=== PATIENT | male | born 1975 | race African-American/Black ===

== ENCOUNTER 2018-08-28 18:25 | Emergency (ER) | payer BC ==
[~2018-08-28] VITALS: Ht 177.8 cm; Wt 86.6 kg
[~2018-08-28 18:25] MED LIST: PREDNISONE 20 M20 MG PO; PROVENTIL HFA6.7 G1 INH; TESSALON PERLE100 MG PO; WELLBUTRIN 100100 MG PO
[2018-08-28 19:27] LABS: CALCIUM 9.1 mg/dL (8.5-10.1); CREATININE 1.3 mg/dL (0.7-1.3); POTASSIUM 3.9 mmol/L (3.5-5.1)
[2018-08-28 19:29] LABS: URINE BILIRUBIN NEGATIVE (Negative); URINE BLOOD TRACE (Negative); URINE CLARITY CLEAR; URINE COLOR YELLOW; URINE GLUCOSE-RANDOM* NEGATIVE (Negative); URINE KETONES NEGATIVE (Negative); URINE LEUKOCYTES-REFLEX NEGATIVE (Negative); URINE NITRITE-REFLEX NEGATIVE (Negative); URINE PROTEIN (DIPSTICK) NEGATIVE (Negative); URINE SPECIFIC GRAVITY 1.025 (1.005-1.035); URINE UROBILINOGEN 0.2 E.U./dl (0.2-1.0)
[2018-08-28 19:34] LABS: ALBUMIN 3.9 g/dL (3.4-5.0); TOTAL BILIRUBIN 0.2 mg/dL (<0.1-1.0); TOTAL PROTEIN 7.2 g/dL (6.4-8.2)
[2018-08-28 21:26] VITALS: BP 138/58
== END 2018-08-28 21:50 | disposition home or self-care (01) ==
LOC: ER 18:25
PROVIDERS: Emergency Medicine
DX: R10.31 Right lower quadrant pain (principal); R10.32 Left lower quadrant pain; R11.2 Nausea with vomiting, unspecified; F17.210 Nicotine dependence, cigarettes, uncomplicated; Z91.012 Allergy to eggs

== ENCOUNTER 2018-11-17 13:01 | Emergency (ER) | payer BC ==
[~2018-11-17] VITALS: Ht 177.8 cm; Wt 90.7 kg
[2018-11-17 13:41] LABS: URINE BILIRUBIN NEGATIVE (Negative); URINE BLOOD 1+ (Negative); URINE CLARITY CLEAR; URINE COLOR YELLOW; URINE GLUCOSE-RANDOM* NEGATIVE (Negative); URINE KETONES NEGATIVE (Negative); URINE LEUKOCYTES-REFLEX NEGATIVE (Negative); URINE NITRITE-REFLEX NEGATIVE (Negative); URINE PROTEIN (DIPSTICK) NEGATIVE (Negative); URINE UROBILINOGEN 0.2 E.U./dl (0.2-1.0)
[2018-11-17 13:53] LABS: ABSOLUTE NEUTROPHILS 9.8 thou/uL (1.4-8.2); BASOPHILS 0.6 % (0.0-2.0); EOSINOPHILS 0.1 % (0.0-3.0); HEMATOCRIT 50.1 % (42.0-52.0); HEMOGLOBIN 16.5 gm/dL (14.0-18.0); LYMPHOCYTES 12.4 % (24.0-44.0); MCH 29.1 pg (26.0-34.0); MONOCYTES 7.2 % (1.0-8.0); PLATELET COUNT 246 thou/uL (150-400); POLYS 79.7 % (36.0-66.0); RDW 14.6 % (10.5-14.5); WBC 12.2 thou/uL (4.0-11.0)
[2018-11-17 13:53] LABS: BACTERIA-REFLEX 1-9 Few /HPF (None Seen); CASTS None Seen /LPF (None Seen); CRYSTALS None Seen /LPF (None Seen); SQUAMOUS 0-3 Few /LPF (0-3); URINE RBC 0-2 Rare /HPF (0-2); URINE WBC-REFLEX None Seen /HPF (0-5)
[2018-11-17 13:58] LABS: CALCIUM 9.7 mg/dL (8.5-10.1); CREATININE 1.2 mg/dL (0.7-1.3); POTASSIUM 3.9 mmol/L (3.5-5.1)
[2018-11-17 14:06] LABS: ALBUMIN 4.4 g/dL (3.4-5.0); TOTAL BILIRUBIN 0.3 mg/dL (<0.1-1.0); TOTAL PROTEIN 8.6 g/dL (6.4-8.2)
[2018-11-17] MEDS ORDERED: ZOFRAN ODT4 MG PO (15:12)
[2018-11-17] MEDS ORDERED: CIPRO500 MG PO (15:12)
[2018-11-17] MEDS ORDERED: FLAGYL500 M1 PO (15:12)
[2018-11-17 16:42] VITALS: BP 130/85
== END 2018-11-17 16:49 | disposition home or self-care (01) ==
LOC: ER 13:01
PROVIDERS: Emergency Medicine
DX: K52.9 Noninfective gastroenteritis and colitis, unspecified (principal); R31.9 Hematuria, unspecified; F17.210 Nicotine dependence, cigarettes, uncomplicated; Z91.012 Allergy to eggs

== ENCOUNTER 2019-09-04 15:45 | Emergency (ER) | payer BC ==
[~2019-09-04] VITALS: Ht 177.8 cm; Wt 83.9 kg
[~2019-09-04 15:45] MED LIST changes: +CIPRO500 MG PO; +FLAGYL500 M1 PO; +ZOFRAN ODT4 MG PO
[2019-09-04] MEDS ORDERED: NORFLEX100 MG PO (17:22)
[2019-09-04] MEDS ORDERED: PREDNISONE 10 M10 MG PO (17:22)
[2019-09-04 17:29] VITALS: BP 140/87
== END 2019-09-04 17:29 | disposition home or self-care (01) ==
LOC: ER 15:45
DX: M54.12 Radiculopathy, cervical region (principal); F17.210 Nicotine dependence, cigarettes, uncomplicated; Z91.012 Allergy to eggs

== ENCOUNTER 2020-03-07 16:10 | Emergency (ER) | payer BC ==
[~2020-03-07] VITALS: Ht 177.8 cm; Wt 79.4 kg
[~2020-03-07 16:10] MED LIST changes: +NORFLEX100 MG PO; +PREDNISONE 10 M10 MG PO
[2020-03-07] MEDS ORDERED: PREDNISONE 20 M20 MG PO (18:21)
[2020-03-07 19:00] VITALS: BP 133/84
== END 2020-03-07 19:03 | disposition home or self-care (01) ==
LOC: ER 16:10
DX: M75.52 Bursitis of left shoulder (principal); F17.210 Nicotine dependence, cigarettes, uncomplicated; Z91.012 Allergy to eggs

== ENCOUNTER 2021-02-08 11:08 | Emergency (ER) | payer BC ==
[~2021-02-08] VITALS: Ht 177.8 cm; Wt 79.4 kg
[2021-02-08] MEDS ORDERED: SILDENAFIL CIT100 MG PO (11:21)
[2021-02-08] MEDS ORDERED: TESTOSTERONE75 G1 (11:22)
[2021-02-08] MEDS ORDERED: CYCLOBENZAPRINE5 MG PO (11:23)
[2021-02-08 12:30] VITALS: BP 138/93
== END 2021-02-08 12:10 | disposition home or self-care (01) ==
LOC: ER 11:08
DX: U07.1 COVID-19 (principal); F17.210 Nicotine dependence, cigarettes, uncomplicated; Z91.012 Allergy to eggs